=== PATIENT | female | born 2000 | race Caucasian/White ===

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

== ENCOUNTER 2019-09-25 08:56 | Emergency (ER) | payer MEDICAID ==
[2019-09-25] MEDS ORDERED: MORPHINE 2 MG/ML CARPUJECT IVP STA (09:30)
[2019-09-25] MEDS ORDERED: ONDANSETRON 4 MG/2 ML VIAL IVP STA (09:30)
--- NOTE | 2019-09-25 09:33 | ED Physician Documentation ---
History of Present Illness - Stated complaint Stated Complaint: ABD PX - Chief complaint Chief Complaint: Abd Pain - Additonal information Additional information: This is a 19-year-old female who presents with right upper quadrant abdominal pain. Patient states her pain began several days ago but then it improved when she avoided eating, it has occurred twice since then and the most recent episode began yesterday, and has persisted. She has vomited several times. Her pain is in the right upper quadrant, it is moderate to severe, and nonradiating. She denies any abdominal surgeries she has no history of abdominal problems. No dys uria, no fever, no jaundice. 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 HEENT: None Psych: None Musculoskeletal: None Derm: None - Past Surgical History Past Surgical History: No - Present Medications Home Medications: Ambulatory Orders Medication Instructions Recorded Confirmed No Known Home Medications 09/25/19 09/25/19 - Allergies Allergies/Adverse Reactions: Allergies Allergy/AdvReac Type Severity Reaction Status Date / Time Penicillins Allergy Rash Verified 09/25/19 09:07 - Social History Does the pt smoke?: No Smoking Status: Never smoker Does the pt drink ETOH?: No Does the pt have substance abuse?: No - Immunizations Immunizations are current?: Yes - POLST Patient has POLST: No PD ED PE NORMAL - Vitals Vital signs reviewed: Yes - General General: Alert and oriented X 3, No acute distress - HEENT HEENT: PERRL - Neck Neck: Supple, no meningeal sign - Cardiac Cardiac: RRR - Respiratory Respiratory: No respiratory distress - Abdomen Abdomen: Other (Soft, nondistended, there is tenderness ablation the right upper quadrant, no right lower quadrant tenderness. 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 # (Auto) 0.6 Eos # (Auto) 0.0 Baso # (Auto) 0.0 Absolute Nucleated RBC 0.00 Nucleated RBC % 0.0 Sodium 139 Potassium 3.7 Chloride 103 Carbon Dioxide 25 Anion Gap 11.0 BUN 5 L Creatinine 0.8 Estimated GFR (MDRD) 91 Glucose 113 H Calcium 9.9 Total Bilirubin 0.8 AST 26 ALT 27 Alkaline Phosphatase 69 Total Protein 8.5 H Albumin 4.7 Globulin 3.8 Albumin/Globulin Ratio 1.2 Lipase 36 Serum HCG, Qual NEGATIVE Urine Color Urine Clarity Urine pH Ur Specific [place] Urine Protein Urine Glucose (UA) Urine Ketones Urine Occult Blood Urine Nitrite Urine Bilirubin Urine Urobilinogen Ur Leukocyte Esterase Ur Microscopic Review Urine Culture Comments 09/25/19 09:35 WBC RBC Hgb Hct MCV MCH MCHC RDW Plt Count MPV Neut # (Auto) Lymph # (Auto) [facility] # (Auto) Eos # (Auto) Baso # (Auto) Absolute Nucleated RBC Nucleated RBC % Sodium Potassium Chloride Carbon Dioxide Anion Gap BUN Creatinine Estimated GFR (MDRD) Glucose Calcium Total Bilirubin AST ALT Alkaline Phosphatase Total Protein Albumin Globulin Albumin/Globulin Ratio Lipase Serum HCG, Qual Urine Color YELLOW Urine Clarity CLEAR Urine pH 7.0 Ur Specific [place] 1.015 Urine Protein NEGATIVE Urine Glucose (UA) NEGATIVE Urine Ketones NEGATIVE Urine Occult Blood NEGATIVE Urine Nitrite NEGATIVE Urine Bilirubin NEGATIVE Urine Urobilinogen 0.2 (NORMAL) Ur Leukocyte Esterase NEGATIVE Ur Microscopic Review NOT INDICATED Urine Culture Comments NOT INDICATED - Rads (name of study) RUQ US Radiology: Other (Multiple echogenic structures including a non-mobile stone in the neck of the gallbladder. There is gallbladder wall thickening and a + sonograph hernandez sign.) PD MEDICAL DECISION MAKING - ED course Complexity details: considered differential (Biliary colic, gastritis, pancreatitis, cholecystitis) ED course: Patient has focal RUQ tenderness on exam. She is given zofran and morphine and a crystalloid bolus, and labs are drawn. Labs are unremarkable with no leukocytosis, LFT elevations, or signs of UTI. HCG negative. RUQ US shows gallstones, including a non-mobile stone in the gallbladder neck, and wall edema, concerning for cholecystitis. On repeat exam patient's pain has resolved. I discussed our findings and recommended cholecystectomy. I spoke with patient and her mother in depth about my recommendation and my concern that without surgery she will likely have a reccurence of her pain and could have progression to more inflammation and possibly infection, and could have other complications including cholangitis. She originally was interested in surgery, but then changed her mind as she has a flight to see her sister renetta and she is feeling very well at this time, as well as a benign abdominal exam. Dr. Ferreira spoke with patient as well, she continued to decline surgery so we discussed close outpatient follow up and very strict return precautions including recurrent pain, fever, vomiting, or any other symptoms. She understands she is at risk for a recurrence during her travel and the dangers of this. Patient verbalized her understanding and appreciation for our concern. She was discharged in the care of her mother. Departure - Departure Disposition: 01 Home, Self Care Clinical Impression: Biliary colic Condition: Good Instructions: ED Gallstone W Biliary Colic Follow-Up: Lico Ferreira MD [Provider Admit Priv/Credential] - (Call to schedule a clinic visit or operation) Comments: You appear to have biliary colic, or pain/inflammation of your gallbladder due to stones in your gallbladder. At this time you are feeling better and it appears safe you to go home since you do not want surgery today, but you should schedule an appointment with a general surgeon as you will likely need your gallbladder removed. Please avoid fatty foods, as this can trigger the attacks. If you develop worsening pain, vomiting, fever, or other concerning symptoms return to the emergency department. You may take Tylenol for minor discomfort. Discharge Date/Time: 09/25/19 15:22
[2019-09-25 09:46] LABS: BASOPHILS % (AUTO) 0.5 %; EOSINOPHILS % (AUTO) 0.5 %; HGB - HEMOGLOBIN 14.6 g/dL (12.0-16.0); LYMPHOCYTES # (AUTO) 1.6 10^3/uL (1.5-3.5); LYMPHOCYTES % (AUTO) 25.3 %; MEAN CORPUSCULAR HEMOGLOBIN 29.1 pg (27.0-31.0); MEAN CORPUSCULAR HGB CONC 33.5 g/dL (32.0-36.0); MEAN PLATELET VOLUME 9.1 fL (7.9-10.8); MONOCYTES # (AUTO) 0.6 10^3/uL (0.0-1.0); MONOCYTES % (AUTO) 9.2 %; NEUTROPHILS % (AUTO) 64.3 %; PLT - PLATELET COUNT 210 10^3/uL (130-450); RED BLOOD COUNT 5.01 10^6/uL (4.20-5.40); WHITE BLOOD COUNT 6.2 x10^3/uL (4.8-10.8)
[2019-09-25 09:47] LABS: BILIRUBIN,URINE NEGATIVE (NEGATIVE); GLUCOSE, URINE (UA) NEGATIVE (NEGATIVE); KETONES,URINE (UA) NEGATIVE (NEGATIVE); LEUKOCYTE ESTERASE, URINE NEGATIVE (NEGATIVE); NITRITE,URINE NEGATIVE (NEGATIVE); OCCULT BLOOD,URINE NEGATIVE (NEGATIVE); PROTEIN,URINE NEGATIVE (NEGATIVE); UROBILINOGEN,URINE 0.2 (NORMAL) E.U./dL (NORMAL)
[2019-09-25 09:48] LABS: CLARITY,URINE CLEAR (CLEAR)
[2019-09-25 09:55] LABS: ALBUMIN 4.7 g/dL (3.2-5.5); ALBUMIN/GLOBULIN RATIO 1.2 (1.0-2.2); BILIRUBIN,TOTAL 0.8 mg/dL (0.2-1.0); CALCIUM 9.9 mg/dL (8.5-10.3); CREATININE 0.8 mg/dL (0.4-1.0); TOTAL PROTEIN 8.5 g/dL (6.7-8.2)
[2019-09-25 11:13] LABS: HCG,QUALITATIVE BLOOD NEGATIVE
--- NOTE | 2019-09-25 11:39 | Ultrasound Report ---
Reason: RUQ pain, assess for biliary pathology Procedure Date: 09/25/2019 Accession Number: [id number] / [id number] Procedure: US - Abdomen Limited CPT Code: FULL RESULT: EXAM: ABDOMEN ULTRASOUND LIMITED, RUQ EXAM DATE: 09/25/2019 11:11 AM. CLINICAL HISTORY: RUQ pain, assess for biliary pathology. COMPARISON: None. TECHNIQUE: Real-time scanning was performed with static images obtained. FINDINGS: Liver: Normal in size and echotexture. 15.9 cm. Main portal vein flow: Hepatopetal. Gallbladder: Echogenic structures in the gallbladder lumen with posterior acoustic shadowing consistent with cholelithiasis, including a cholelithiasis in the gallbladder neck measuring 1.3 cm, without mobility. Gallbladder wall thickening with mural edema with the gallbladder measuring up to 1.5 cm. Positive sonographic Mcgrath sign. Biliary System: CBD measures 5 mm. No intrahepatic or extrahepatic ductal dilatation. Other: None. IMPRESSION: Cholelithiasis with nonmobile gallstone in the gallbladder neck with associated gallbladder wall thickening with mural edema and positive sonographic Mcgrath sign. Findings concerning for acute cholecystitis RADIA
[2019-09-25 12:52] VITALS: BP 123/74
--- NOTE | 2019-09-25 20:26 | CONSULTATION NOTE ---
Referring Provider Name of Referring Provider:: Dr. Mohamud Olsen Consult Date: 09/25/19 Chief Complaint - Chief Complaint Chief Complaint: Right upper quadrant pain History of Present Illness - Admitted From Admitted From:: Not admittedseen in the [facility] emergency department - History Obtained From Records Reviewed: Yes History obtained from: Primarily the patient as well as Dr. Mohamud Olsen Exam Limitations: None - History of Present Illness HPI Comment/Other: The patient is a very pleasant 19-year-old female who was evaluated in [facility]'s emergency department room 8 in the presence of her mother. The patient has a several day history of epigastric abdominal pain that was somewhat postprandial in nature. It was described as quite sharp and lancinating going through to her back or originating in her back and going through to her front. It was accompanied by nausea and vomiting. It had a waxing and waning quality to it. Yesterday she did not have the pain nearly as bad as she had it today. She denies constipation or diarrhea. 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 : reports: None HEENT: reports: None Psych: reports: None Musculoskeletal: reports: None Derm: reports: None MRSA Hx?: No - POLST Patient has POLST: No Meds/Allgy - Home Medications Home Medications: Ambulatory Orders Medication Instructions Recorded Confirmed No Known Home Medications 09/25/19 09/25/19 - Allergies Allergies/Adverse Reactions: Allergies Allergy/AdvReac Type Severity Reaction Status Date / Time Penicillins Allergy Rash Verified 09/25/19 09:07 Review of Systems - Constitutional Constitutional: denies: Fatigue, Fever, Chills - Eyes Eyes: denies: Pain - Ears, Nose & Throat Ears, Nose & Throat: denies: Ear pain - Cardiovascular Cariovascular: denies: Irregular heart rate, Palpitations, Chest pain - Respiratory Respiratory: denies: Cough - Gastrointestinal Gastrointestinal: reports: Abdominal pain, Nausea, Vomiting. denies: Abdominal distention, Constipation, Diarrhea, Change in bowel habits, Rectal bleeding, Black stools, Bloody stools, Bile emesis, Elliot blood emesis, Coffee grounds emesis - Genitourinary Genitourinary: denies: Dysuria - Musculoskeletal Musculoskeletal: denies: Muscle pain - Neurological Neurological: denies: General weakness, Focal weakness Exam - Vital Signs Reviewed Vital Signs: Yes Vital Signs: Vital Signs x48h Temp Pulse Resp BP Pulse Ox 09/25/19 12:51 37.1 C 76 12 123/74 98 - Physical Exam General Appearance: positive: No acute distress Eyes Bilateral: positive: No lid inflammation, Conjunctivae nml, No scleral icterus ENT: positive: Dry mucous membranes Neck: positive: Trachea midline Respiratory: positive: Chest non-tender, No respiratory distress, Breath sounds nml Cardiovascular: positive: Regular rate & rhythm Abdomen: positive: Nml bowel sounds, No distention, Tenderness (Ever so slightly tender in the right upper quadrant.) Skin: positive: Color nml Extremities: positive: Other (Lacking her left hand.) Neurologic/Psychiatric: positive: Oriented x3, Motor nml, Sensation nml, Mood/affect nml Conclusion/Plan - Diagnosis Diagnosis: Biliary colic - Plan Plan: I discussed the pathophysiology of cholelithiasis with the patient and her mother and I lanny pictures explaining the anatomy and the pathophysiology of how gallstones can cause pain. I lanny pictures explaining how surgery is done. I explained who typically gets gallstones. Surgery for this disease was offered and the patient explained to me that she just wished to discuss her options but she would "rather keep all of her organs if she could." The patient is scheduled to fly out to [place] later on [facility] to visit her sister who just had a baby. Apparently the patient is an aunt to 11 other children -it is just that she is the closest to the sister. The patient asked me if she is at risk if she takes this flight ton and I explained to her that she is not in a life or risk but rather she could have her symptoms recur. I do recommend that she be on a fat-free diet. I also explained that if her symptoms recur while she is in [place] that she should seek surgical attention and that a laparoscopic cholecystectomy would be in order. I explained to her that no surgeon should agree to perform a laparoscopic cholecystectomy without the possibility of an open cholecystectomy. I asked her to contact me with any surgical questions and or concerns and I wished her well. I wished her a safe flight. Notably her white count is normal and her liver function studies are normal as well. 45 minutes of [id number] time spent with the patient, the majority of which was spent in discussion, coordination of care, and completion of the requisite paperwork Demetra disclaimer: This document was created in part using voice recognition technology. Because of the inherent limitations of the system ([employer]'s [employer] user manual states that the licensee understands that speech recognition is a statistical process and that recognition errors are inherent in the process), occasional same sounding word substitutions and grammatical errors do occur and persist despite proofreading. Please read this document for context. - Lab Results Lab results reviewed: Yes Fish Bones: 09/25/19 09:35 09/25/19 09:35 - Diagnostic Imaging Results Diagnostic Imaging Results: positive: Final report reviewed (Although acute cholecystitis was mentioned clinically the patient has biliary colic.)
== END 2019-09-25 15:22 | disposition home or self-care (01) ==
LOC: ED 08:56
DX: K80.20 Calculus of gallbladder without cholecystitis without obstruction (principal)
CPT/HCPCS: 36415; 76705; 80053; 81001; 81003; 83690; 84703; 85025; 87086; 96374; 99283

== ENCOUNTER 2020-04-24 21:25 | Outpatient (CLI) | payer MEDICAID | END 2020-04-24 23:59 | disposition critical access hospital (66) | LOC: EMS 21:25 | PROVIDERS: ATTEND Surgery | DX: R45.851 Suicidal ideations (principal); R11.10 Vomiting, unspecified; Z72.89 Other problems related to lifestyle | CPT/HCPCS: A0425; A0429; A0999 ==

== ENCOUNTER 2020-04-24 21:42 | Emergency (ER) | payer MEDICAID ==
--- NOTE | 2020-04-24 21:55 | ED Physician Documentation ---
PD HPI MHE - Stated complaint Stated Complaint: SI/ETOH - Chief complaint Chief Complaint: MHE - History obtained from History obtained from: Patient, EMS - History of Present Illness Primary symptom: Suicidal ideation Timing - onset: Unknown Pain level max: 0 Pain level now: 0 Contributing factors: Substance abuse - ETOH - Additional information Additional information: 20-year-old female presents to the emergency department via EMS. She apparently was intoxicated outside of [facility] when a bystander drove her home. She had no keys to enter her residence. EMS was called to the scene. They asked her if she was suicidal or homicidal. She stated that she was going to hurt herself by cutting herself with a knife. She was brought here for evaluation. She is currently intoxicated. She states she has been drinking vodka all day. She states that this is normal for her. She states she has had psychiatric issues in the past and has been hospitalized. Patient is brought in in restraints. Kicking and screaming. Attempted to bite EMS. 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 Kicking and screaming) - HEENT HEENT: Atraumatic, Moist mucous membranes - Neck Neck: Supple, no meningeal sign - Cardiac Cardiac: RRR - Respiratory Respiratory: No respiratory distress, Clear bilaterally - Abdomen Abdomen: Soft, Non tender, Non distended - Derm Derm: Warm and dry - Extremities Extremities: No deformity, Other (Moving all extremities equally) - Neuro Neuro: No motor deficit - Psych Psych: Other (Agitated, intoxicated) Results - Vitals Vitals: Vital Signs - 24 hr 04/24/20 04/24/20 04/24/20 21:45 22:39 22:45 Temperature 37.6 C H Heart Rate 115 H 88 85 Respiratory 20 16 14 Rate Blood Pressure 163/94 H 113/58 L 113/60 O2 Saturation 96 94 94 Oxygen O2 Source Room air - Labs Labs: Laboratory Tests 04/24/20 04/24/20 04/24/20 22:00 22:00 22:00 WBC 8.4 RBC 4.80 Hgb 13.8 Hct 41.7 MCV 86.9 MCH 28.8 MCHC 33.1 RDW 13.5 Plt Count 302 MPV 8.6 Neut # (Auto) 5.1 Lymph # (Auto) 2.6 [place] # (Auto) 0.5 Eos # (Auto) 0.0 Baso # (Auto) 0.1 Absolute Nucleated RBC 0.00 Nucleated RBC % 0.0 Sodium 140 Potassium 3.4 L Chloride 105 Carbon Dioxide 24 Anion Gap 11.0 BUN 9 Creatinine 0.7 Estimated GFR (MDRD) 106 Glucose 112 H Calcium 8.7 Total Bilirubin 0.5 AST 26 ALT 16 Alkaline Phosphatase 69 Total Protein 7.6 Albumin 4.5 Globulin 3.1 Albumin/Globulin Ratio 1.5 Lipase 29 TSH 1.31 Salicylates < 6.0 Acetaminophen < 10 L Ethyl Alcohol 307.4 PD MEDICAL DECISION MAKING - ED course Complexity details: reviewed results, re-evaluated patient, considered differential, d/w patient ED course: patient signed out to oncoming ED Physician. She will be allowed to sober in the emergency department, re-evaluated in the am likely with social work consult as well. Patient maintained in restraints during my shift for safety/violence. This document was made in part using voice recognition software. While efforts are made to proofread this document, sound alike and grammatical errors may oc cur. Departure - Departure Clinical Impression: Suicidal ideation Alcohol intoxication Qualifiers: Complication of substance-induced condition: uncomplicated Qualified Code(s): F10.920 - Alcohol use, unspecified with intoxication, uncomplicated Condition: Stable
[2020-04-24 22:09] LABS: BASOPHILS # (AUTO) 0.1 10^3/uL (0.0-0.1); BASOPHILS % (AUTO) 0.8 %; EOSINOPHILS % (AUTO) 0.2 %; HGB - HEMOGLOBIN 13.8 g/dL (12.0-16.0); LYMPHOCYTES # (AUTO) 2.6 10^3/uL (1.5-3.5); LYMPHOCYTES % (AUTO) 31.4 %; MEAN CORPUSCULAR HEMOGLOBIN 28.8 pg (27.0-31.0); MEAN CORPUSCULAR HGB CONC 33.1 g/dL (32.0-36.0); MEAN CORPUSCULAR VOLUME 86.9 fL (81.0-99.0); MEAN PLATELET VOLUME 8.6 fL (7.9-10.8); MONOCYTES # (AUTO) 0.5 10^3/uL (0.0-1.0); MONOCYTES % (AUTO) 6.1 %; NEUTROPHILS # (AUTO) 5.1 10^3/uL (1.5-6.6); NEUTROPHILS % (AUTO) 61.3 %; PLT - PLATELET COUNT 302 10^3/uL (130-450); RED CELL DISTRIBUTION WIDTH 13.5 % (12.0-15.0); WHITE BLOOD COUNT 8.4 x10^3/uL (4.8-10.8)
[2020-04-24 22:30] LABS: ACETAMINOPHEN < 10 ug/mL (10-30); ALBUMIN 4.5 g/dL (3.2-5.5); ALBUMIN/GLOBULIN RATIO 1.5 (1.0-2.2); ALKALINE PHOSPHATASE 69 IU/L (42-121); ALT ALANINE AMINOTRANSFERASE 16 IU/L (10-60); AST ASPARTATE AMINOTRANSFERASE 26 IU/L (10-42); BILIRUBIN,TOTAL 0.5 mg/dL (0.2-1.0); BUN - BLOOD UREA NITROGEN 9 mg/dL (6-20); CALCIUM 8.7 mg/dL (8.5-10.3); CARBON DIOXIDE - CO2 24 mmol/L (21-32); CHLORIDE 105 mmol/L (101-111); CREATININE 0.7 mg/dL (0.4-1.0); GLUCOSE 112 mg/dL (70-100); LIPASE 29 U/L (22-51); SALICYLATE < 6.0 mg/dL; SODIUM 140 mmol/L (135-145); TOTAL PROTEIN 7.6 g/dL (6.7-8.2)
[2020-04-24] MEDS ORDERED: OLANZapine 10 MG VIAL IM STA (23:54)
[2020-04-24 23:55] LABS: MUDS CUTOFF CONCENTRATIONS CUTOFF CONC BELOW:
[2020-04-24 23:56] LABS: BILIRUBIN,URINE NEGATIVE (NEGATIVE); GLUCOSE, URINE (UA) NEGATIVE (NEGATIVE); KETONES,URINE (UA) NEGATIVE (NEGATIVE); LEUKOCYTE ESTERASE, URINE TRACE (NEGATIVE); NITRITE,URINE NEGATIVE (NEGATIVE); OCCULT BLOOD,URINE TRACE-INTA (NEGATIVE); PROTEIN,URINE NEGATIVE (NEGATIVE); UROBILINOGEN,URINE 0.2 (NORMAL) E.U./dL (NORMAL)
[2020-04-24 23:58] LABS: CLARITY,URINE CLEAR (CLEAR); HCG UR QUAL NEGATIVE
[2020-04-25 00:03] LABS: BACTERIA,URINE None Seen /HPF (None Seen); RBC,URINE None Seen /HPF (0-5); SQUAMOUS EPITHELIAL CELL,UR MANY Squamous (<= Few)
[2020-04-25 00:06] LABS: AMPHETAMINE SCREEN,URINE NEGATIVE (NEGATIVE); BENZODIAZEPINES SCREEN, URINE NEGATIVE (NEGATIVE); COCAINE SCREEN URINE NEGATIVE (NEGATIVE); METHADONE SCREEN, URINE NEGATIVE (NEGATIVE); METHAMPHETAMINES SCREEN, URINE NEGATIVE (NEGATIVE); OPIATE SCREEN, URINE NEGATIVE (NEGATIVE); OXYCODONE SCREEN, URINE NEGATIVE (NEGATIVE); PROPOXYPHENE SCREEN, URINE NEGATIVE (NEGATIVE); TRICYCLIC ANTIDEPRESSANT,URINE NEGATIVE (NEGATIVE)
[2020-04-25 09:55] VITALS: BP 122/73
== END 2020-04-25 09:18 | disposition home or self-care (01) ==
LOC: EDBD → ED 21:42 → MERGE 21:42 → ED 04-25 09:18
DX: F10.920 Alcohol use, unspecified with intoxication, uncomplicated (principal); R45.851 Suicidal ideations; Z78.1 Physical restraint status
CPT/HCPCS: 36415; 51701; 80053; 80306; 80307; 80320; 80329; 81001; 81003; 81025; 83690; 84443; 85025; 87086; 99281; 99285